=== PATIENT | female | born 1985 | race Caucasian/White ===

== ENCOUNTER 2018-05-22 06:00 | Inpatient (IN) ==
[2018-05-22] MEDS ORDERED: OXYTOCIN/DEXTROSE 5%-WATER 30 UNITS/500 ML BAG IV ONE (06:22)
[2018-05-22] MEDS ORDERED: PENICILLIN G POTASSIUM 5 MILLIONUNT in DEXTROSE 5 % IN WATER 100 ML IV ONE ×2 (06:22)
[2018-05-22] MEDS ORDERED: RINGER'S SOLUTION,LACTATED 1,000 ML IV ONE (06:22)
[2018-05-22] MEDS ORDERED: LIDOCAINE HCL 50 ML VIAL PERI PRN (06:22)
[2018-05-22] MEDS ORDERED: ONDANSETRON HCL/PF 2 MG/ML VIAL IV PRN (06:22)
[2018-05-22] MEDS ORDERED: NALBUPHINE HCL 10 MG/ML AMPUL IV PRN ×2 (06:22)
[2018-05-22] MEDS: RINGER'S SOLUTION,LACTATED 1,000 ML IV PRN ×3 (07:11→20:56)
[2018-05-22] MEDS: MISOPROSTOL 100 MCG TABLET VG PRN ×2 (07:26→11:39)
[2018-05-22 08:04] LABS: Cocaine Ur Negative (NEGATIVE); Urine Barbiturate Negative (NEGATIVE); Urine Benzodiazepines Negative (NEGATIVE); Urine Opiates Negative (NEGATIVE); Urine PCP Negative (NEGATIVE); Urine THC Negative (NEGATIVE)
[2018-05-22] MEDS: PENICILLIN G POTASSIUM 2.5 MILLIONUNT in DEXTROSE 5 % IN WATER 100 ML IV SCH ×8 (11:39→22:55)
--- NOTE | 2018-05-22 15:39 | PN ---
Progess Note - Interim Date: 05/22/18 Time: 15:36 Narrative: 05/22/18 15:36 The patient is a 33 yo @ 39w 0d who presents to L&D for an elective IOL with an EFW > 90% tile. She has received two doses of cytotec. Her cervix remains closed and unchanged. Start pitocin when her ctx space out FHT is cat 1 I did give the patient the option to be discharged home and return next week to try IOL again. She prefers to be started on pitocin. If unchanged in the morning she will consider discharge home then.
[2018-05-23] MEDS: PENICILLIN G POTASSIUM 2.5 MILLIONUNT in DEXTROSE 5 % IN WATER 100 ML IV SCH ×10 (04:32→21:04)
--- NOTE | 2018-05-23 08:41 | PN ---
Progess Note - Interim Date: 05/23/18 Time: 08:37 Narrative: 05/23/18 08:37 Pitocin was stopped last night because nursing had concerns for malpresentation. Given that the patient is such a difficult scan due to a large anterior intramural fibroid I wanted radiology to scan the patient prior to continuing pitocin. The patient had an ultrasound this morning that confirmed vertex presentation. I did attempt a speculum exam to attempt to visualize her cervix better but was not successful. Her cervix was recheck by placing the patient in pushing position. The patient's cervix is now 2/70/-3 AROM for bloody tinged fluid FSE placed Place IUPC once the patient is more comfortable Start pitocin The plan of care was discussed with the patient and her spouse in detail
[2018-05-23] MEDS ORDERED: BUPIVACAINE HCL/0.9 % NACL/PF 250 ML EP PRN (12:33)
[2018-05-23] MEDS ORDERED: NALOXONE HCL 1 MG/1 ML SYRG IV PRN (12:33)
[2018-05-23] MEDS ORDERED: ONDANSETRON HCL/PF 2 MG/ML VIAL IV PRN ×2 (12:33→18:30)
[2018-05-23] MEDS ORDERED: BUPIVACAINE HCL/PF 30 ML VIAL EP SCH (12:45)
--- NOTE | 2018-05-23 13:27 | ANES ---
Anesthesia Pre Procedure Eval Vitals/Labs: Last Vital Signs Temp 36.4 C 05/22/18 07:47 Pulse 105 H 05/22/18 07:47 Resp 16 05/22/18 07:47 BP 124/84 05/22/18 07:47 Pulse Ox 98 05/22/18 07:47 HOME MEDICATIONS Vit No.128/Iron/FA [ Formula] 1 ea PO DAILY 12/03/12 [Last Taken Unknown] Allergies/Adverse Reactions: Allergies Allergy/AdvReac Type Severity Reaction Status Date / Time No Known Allergies Allergy Verified 05/22/18 06:23 - Planned Procedure Planned Procedure: Labor epidural Medication List Reviewed:: Yes Allergies Verified: Yes Medical History (Last Reviewed 05/23/18 @ 13:24 by King Jean-Baptiste CRNA) Kidney stone Onset Date: ~11/2012 Spontaneous Onset Date: ~11/2012 8 weeks, 2014 Surgical History (Last Reviewed 05/23/18 @ 13:24 by King Jean-Baptiste CRNA) History of dilation and curettage Onset Date: ~11/2012 Family History (Last Reviewed 05/23/18 @ 13:24 by King Jean-Baptiste CRNA) Mother Asthma Father Accident, Onset Age: 35 Grandmother Cancer Maternal Grandfather , Maternal Cancer Prostate - Anesthesia Assessment and Plan ASA Class: PS, II Anesthesia Type Plan: Epidural
--- NOTE | 2018-05-23 13:55 | ANES ---
Anesthesia Procedure Note Procedure Note: ANESTHESIA PROCEDURE NOTE Date of Procedure: 05/23/2018. Time of procedure: 1330. Performed by: King Jean-Baptiste CRNA Offbearer Sewer Pipe: None. Preprocedure diagnosis: Active labor. Post procedure diagnosis: Same. Procedure: Insertion of labor epidural. Indications: The patient is a 33-year-old female in active labor requesting labor epidural for pain management. Findings: See below. Details of the procedure: The patient was placed in a sitting position. DuraPrep as well as Betadine swabs X3 was applied to the patient's back. Patient was then draped in a sterile fashion. Lidocaine 1% was infiltrated to the skin and subcutaneous tissues at the level of the L3-4 interspace. The epidural space was identified using a 18-gauge Tuohy needle with [id number] technique. Epidural catheter was inserted to a depth of 13 centimeters at skin. Negative test dose was elicited using 3 mL of 1.5% preservative-free lidocaine plus epinephrine 1 200,000. The epidural catheter was then taped and secured in place. A loading dose of 8 mL of 0.25% preservative-free bupivacaine was administered to the epidural catheter after negative aspiration for blood and CSF. EBL: Minimal. Fluids: N/A. Specimen: N/A. Post procedure condition: The patient tolerated the procedure well. No complications were noted. Thank you for this consultation. King Jean-Baptiste CRNA
--- NOTE | 2018-05-23 13:55 | ANES ---
Post Anesthesia Assessment - Vital Signs Vitals: Last Vital Signs Temp 36.9 C 05/23/18 13:51 Pulse 94 05/23/18 13:51 Resp 18 05/23/18 13:51 BP 129/76 05/23/18 13:51 Pulse Ox 97 05/23/18 13:51 Airway Patency: Normal - Mental Status Level Of Consciousness: Awake - N/V Assessment Nausea/Vomiting Presence: None Dehydration:: No
--- NOTE | 2018-05-23 15:31 | PN ---
Dorothy Note - Interim Date: 05/23/18 Time: 15:29 Narrative: 05/23/18 15:29 The patient is comfortable with epidural cvx IUPC placed without difficulty to monitor ctx and to titrate pitocin up FHT cat 2 due to nonrecurrent late decelerations. Fluid bolus given as the patient is hypotensive. Will consider additional fluid boluses if the decelerations persist. Continue to titrate pitocin up
[2018-05-23 15:59] LABS: Hemoglobin 13.5 gm/dL (12.5-16.0); Mean Corpuscular Hemoglobin 27.3 pg (27-31); Mean Corpuscular Hgb Conc 32.1 g/dl (32-36); Mean Platelet Volume 10.3 fl (8-12.5); Neutrophil # 8.1 K/mm3 (1.3-6.0); Neutrophil % 76.9 % (42-75.0); Platelet Count 260 K/mm3 (150-450); Red Blood Count 4.94 M/mm3 (4.2-5.4); Red Cell Distribution Width 14.8 % (11.5-14.0); White Blood Count 10.6 K/mm3 (4.0-10.5)
[2018-05-23] MEDS ORDERED: ceFAZolin SODIUM 3 GM in DEXTROSE 5 % IN WATER 100 ML IV ONE ×2 (16:00)
[2018-05-23] MEDS ORDERED: OXYTOCIN 20 UNITS in RINGER'S SOLUTION,LACTATED 1,000 ML IV ONE ×2 (16:00→18:30)
--- NOTE | 2018-05-23 16:17 | ANES ---
Anesthesia Pre Procedure Eval Vitals/Labs: Last Vital Signs Temp 36.9 C 05/23/18 13:51 Pulse 94 05/23/18 13:51 Resp 18 05/23/18 13:51 BP 129/76 05/23/18 13:51 Pulse Ox 97 05/23/18 13:51 HOME MEDICATIONS Vit No.128/Iron/FA [ Formula] 1 ea PO DAILY 12/03/12 [Last Taken Unknown] Allergies/Adverse Reactions: Allergies Allergy/AdvReac Type Severity Reaction Status Date / Time No Known Allergies Allergy Verified 05/22/18 06:23 - Planned Procedure Planned Procedure: Medication List Reviewed:: Yes Allergies Verified: Yes Medical History (Last Reviewed 05/23/18 @ 16:16 by Grey Krause CRNA) Kidney stone Onset Date: ~11/2012 Spontaneous Onset Date: ~11/2012 8 weeks, 2014 Surgical History (Last Reviewed 05/23/18 @ 16:16 by Grey Krause CRNA) History of dilation and curettage Onset Date: ~11/2012 Family History (Last Reviewed 05/23/18 @ 16:16 by Grey Krause CRNA) Mother Asthma Father Accident, Onset Age: 35 Grandmother Cancer Maternal Grandfather , Maternal Cancer Prostate - Family Anesthesia History Family History:: no untoward family reactions to anesthesia - Airway/Neck/Teeth Within Normal Limits:: Yes Teeth Condition: intact Mallampatti Score: 2 Thyromental (T-M) distance: > 6 cm Mandibulo Hyoid distance: > 3 cm - Respiratory Respiratory Physical: lungs clear Smoking Status: Never smoker Sleep Apnea currently treated: No Sleep Apnea by current assessment: No - Cardiovascular Tolerate Activity: Good, Fair Heart Sounds: S1 & S2, Regular - Anesthesia Assessment and Plan ASA Class: PS, II, E Anesthesia Type Plan: Epidural - Bilat TAP block for postop analgesia
--- NOTE | 2018-05-23 16:47 | PN ---
Dorothy Note - Interim Date: 05/23/18 Time: 16:46 Narrative: 05/23/18 16:46 Discussed delivery with the patient due to recurrent late decelerations with minimal variability and the patient being remote from delivery. All risks, benefits, and alternatives of the procedure were explained to the patient and the patient consented to the procedure.
[2018-05-23] MEDS: RINGER'S SOLUTION,LACTATED 1,000 ML IV PRN (17:15)
[2018-05-23] MEDS ORDERED: RINGER'S SOLUTION,LACTATED 1,000 ML IV ONE (18:30)
[2018-05-23] MEDS ORDERED: diphenhydrAMINE HCL 25 MG CAPSULE PO PRN (18:30)
[2018-05-23] MEDS ORDERED: BISACODYL 10 MG SUPP.RECT RC PRN (18:30)
[2018-05-23] MEDS ORDERED: KETOROLAC TROMETHAMINE 30 MG/ML VIAL IV PRN (18:30)
[2018-05-23] MEDS ORDERED: HYDROcodone/ACETAMINOPHEN 1 EACH TABLET PO PRN (18:30)
[2018-05-23] MEDS ORDERED: SENNOSIDES 8.6 MG TABLET PO PRN (18:30)
[2018-05-23] MEDS ORDERED: SIMETHICONE 80 MG TAB.CHEW PO PRN (18:30)
--- NOTE | 2018-05-23 18:31 | OR ---
Operative Report - Dictated Report Narrative: Date of delivery: 05/23/2018 Time of delivery: 1730 Gender: male Weight: 3842 grams APGARS: 9/9 Preoperative diagnosis: IUP @ 39w 1d, nonreassuring heart tracing, intramural fibroid, late care, EFW > 90th percentile Postoperative diagnosis: same Procedure: Primary delivery Surgeon: Dr. Presley Back Wedger: Dr. Daniel Anesthesia: epidural Anesthesiologist: Peterson Krause CRNA Indications for the procedure: The patient is a 33 year old @ 39w 1d who presented to labor and delivery for an elective induction of labor. The patient's cervix was ripened with cytotec followed by AROM and pitocin augmentation. The FHT had recurrent late decelerations with minimal variability. Given that the patient was remote from delivery, had a fibroid thought to be blocking descent, and an unfavorable cervical exam despite dilation a decision was made to proceed with primary delivery. All risks, benefits, and alternatives of the procedure were explained to the patient and the patient consented to the procedure. Description of the procedure: The patient was taken to the operating room where epidural anesthesia was found to be adequate. She was then prepped and draped in the supine position in the standard surgical fashion. A Pfannestiel skin incision was made. The incision was carried through the subcutaneous tissue. The fascia was incised in the midline. The fascia was dissected off the underlying rectus muscles. The peritoneum was entered bluntly. A large Juvencio retractor was placed. The lower uterine incision was incised in a low transverse fashion. The uterine incision was extended bluntly. The head was delivered. The rest of the infant was delivered atraumatically and handed off to the attending pediatric staff. The uterine incision was closed with a locking 0-vicryl suture. Additional hemostasis was obtained with two figure of eight sutures. The fascia was closed with 1-0 vicryl. The subcutaneous tissue was closed with 2-0 vicryl. The skin was closed with 3-0 monocryl on a Edwin needle. Dermabond was placed over the incision. EBL: 600 mL Complications: none
--- NOTE | 2018-05-23 19:00 | ANES ---
Post Anesthesia Discharge - Transfer of Care Transfer of Care handoff given to nurse: Yes - Discharge from PACU Discharge from PACU when meets criteria: Yes
--- NOTE | 2018-05-23 19:00 | ANES ---
Post Anesthesia Assessment - Vital Signs Vitals: Last Vital Signs Temp 37.5 C 05/23/18 18:30 Pulse 86 05/23/18 18:30 Resp 18 05/23/18 18:30 BP 114/48 05/23/18 18:30 Pulse Ox 99 05/23/18 18:30 Airway Patency: Normal - Mental Status Level Of Consciousness: Awake - Pain Level Pain Score: 4 - N/V Assessment Nausea/Vomiting Presence: None Dehydration:: No
[2018-05-23] MEDS: HYDROcodone/ACETAMINOPHEN 1 EACH TABLET PO PRN (20:47)
[2018-05-23] MEDS: DOCUSATE SODIUM 100 MG CAPSULE PO SCH (21:07)
[2018-05-24] MEDS: HYDROcodone/ACETAMINOPHEN 1 EACH TABLET PO PRN ×5 (01:15→21:25)
[2018-05-24] MEDS: IBUPROFEN 800 MG TABLET PO PRN ×4 (01:25→21:24)
[2018-05-24] MEDS: PENICILLIN G POTASSIUM 2.5 MILLIONUNT in DEXTROSE 5 % IN WATER 100 ML IV SCH ×2 (01:33)
--- NOTE | 2018-05-24 09:58 | PN ---
Subjective - Date and Time Seen Date: 05/24/18 Time: 09:53 Subjective Narrative: Patient without complaints Objective Objective Narrative: See vital signs - Review of Systems Generalized/Overall Review: Reports: No Symptoms Reported Misc: All systems neg except as marked - Vitals Vitals: Last Vital Signs Temp 37.0 C 05/24/18 09:25 Pulse 92 05/24/18 09:25 Resp 18 05/24/18 09:25 BP 101/57 05/24/18 09:25 Pulse Ox 96 05/24/18 09:25 - Abnormal Lab Findings Abnormal Lab Findings: Abnormal Lab Results 05/23/18 Range/Units 15:50 WBC 10.6 H (4.0-10.5) K/mm3 RDW 14.8 H (11.5-14.0) % Neutrophils % 76.9 H (42-75.0) % Lymphocytes % 15.2 L (20-51) % Neutrophils # 8.1 H (1.3-6.0) K/mm3 - Exam Constitutional: Present: Alert, Oriented x3, Cooperative, No distress Abdomen: Present: soft, nontender, nondistended - incision c/d/i Extremity: Present: non-tender, no calf tenderness Skin Exam: Present: normal color, warm/dry, no cyanosis Appearance: Present: appropriate appearance Eye contact: Present: cooperative Thoughts: Present: normal thought pattern Cauti Physician Documentation - Urinary Catheter Management Urethral (Styles) Urethral Indwelling: No Assessment/Plan Plan Narrative: POD 1 s/p delivery Doing well Discharge POD 3
[2018-05-24] MEDS: DOCUSATE SODIUM 100 MG CAPSULE PO SCH ×2 (10:42→21:25)
[2018-05-25] MEDS: IBUPROFEN 800 MG TABLET PO PRN ×3 (04:36→23:14)
[2018-05-25] MEDS: HYDROcodone/ACETAMINOPHEN 1 EACH TABLET PO PRN ×3 (04:36→23:15)
--- NOTE | 2018-05-25 09:43 | PN ---
Subjective - Date and Time Seen Date: 05/25/18 Time: 09:34 Subjective Narrative: Patient without complaints Objective Objective Narrative: See vital signs - Review of Systems Generalized/Overall Review: Reports: No Symptoms Reported Misc: All systems neg except as marked - Vitals Vitals: Last Vital Signs Temp 36.8 C 05/25/18 06:45 Pulse 87 05/25/18 06:45 Resp 18 05/25/18 06:45 BP 101/62 05/25/18 06:45 Pulse Ox 98 05/25/18 06:45 - Exam Constitutional: Present: Alert, Oriented x3, Cooperative, No distress Abdomen: Present: soft, nontender, nondistended Extremity: Present: non-tender, no calf tenderness, pedal edema Skin Exam: Present: normal color, warm/dry, no cyanosis Appearance: Present: appropriate appearance Eye contact: Present: cooperative Thoughts: Present: normal thought pattern Cauti Physician Documentation - Urinary Catheter Management Urethral (Styles) Urethral Indwelling: No Assessment/Plan Plan Narrative: POD 2 s/p primary C/S Doing well Discharge tomorrow
[2018-05-25] MEDS: DOCUSATE SODIUM 100 MG CAPSULE PO SCH ×2 (14:45→23:14)
[2018-05-26 08:18] VITALS: BP 111/67
--- NOTE | 2018-05-26 08:46 | PN ---
Subjective - Date and Time Seen Date: 05/26/18 Time: 08:45 Subjective Narrative: Patient without complaints Objective Objective Narrative: See vital signs - Review of Systems Generalized/Overall Review: Reports: No Symptoms Reported Misc: All systems neg except as marked - Vitals Vitals: Last Vital Signs Temp 36.9 C 05/26/18 08:15 Pulse 88 05/26/18 08:15 Resp 18 05/26/18 08:15 BP 111/67 05/26/18 08:15 Pulse Ox 97 05/26/18 08:15 - Exam Constitutional: Present: Alert, Oriented x3, Cooperative, No distress Abdomen: Present: soft, nontender, nondistended - incision c/d/i Extremity: Present: non-tender, no calf tenderness, pedal edema Skin Exam: Present: normal color, warm/dry, no cyanosis Appearance: Present: appropriate appearance Eye contact: Present: cooperative Thoughts: Present: normal thought pattern Cauti Physician Documentation - Urinary Catheter Management Urethral (Styles) Urethral Indwelling: No Assessment/Plan Plan Narrative: POD 3 s/p repeat delivery Discharge home
[2018-05-26] MEDS: DOCUSATE SODIUM 100 MG CAPSULE PO SCH (12:07)
== END 2018-05-26 15:20 | disposition home or self-care (01) | DRG 788 ==
LOC: OB 06:00 → MS 05-25 20:02
PROVIDERS: ADMIT Obstetrics & Gynecology; ATTEND Obstetrics & Gynecology
CPT/HCPCS: 36415; 59025; 76815; 80307; 85025; 86850; 86900; G0479